=== PATIENT | male | born 2000 | race Caucasian/White ===

== ENCOUNTER 2018-10-26 22:53 | Emergency (ER) | payer BC ==
--- NOTE | 2018-10-26 22:57 | EDPHY ---
H & P Time Seen by Provider: 10/26/18 22:56 HPI/ROS: HPI: This is a 18-year-old male who presents with Chief Complaint: Right thumb laceration Location: Right thumb Quality: Laceration Duration: Prior to arrival Signs and Symptoms: + bleeding, no radiation, no numbness, no weakness, no tingling, no incontinence, no decreased range of motion, no swelling, no pain, no fever Timing: Acute Severity: Moderate Context: Patient is right-hand dominant, presents with accidentally cutting his right thumb at on the pad when he was closing his [place] [employer] knife while he was talking on the phone. Patient reports that this happened prior to arrival. He applied direct pressure and the bleeding stopped. Denies any nail involvement. He is from [place] and will be returning there after finals. Reports tetanus is up to date. Modifying Factors: Direct pressure Comment: ROS: A comprehensive 10 system review of systems is otherwise negative aside from elements mentioned in the history of present illness. MEDICAL/SURGICAL/SOCIAL HISTORY: Medical history: Attention deficit hyperactivity disorder Surgical history: Denies Social history: Student at [employer]. Originally from [place], [place]. CONSTITUTIONAL: Polite and cooperative young adult white male, awake and alert , no obvious distress HEENT: Atraumatic and normocephalic, PERRL, EOMI. Nares patent; no rhinorrhea; no nasal mucosal edema. Tympanic membranes clear. Oropharynx clear, no exudate and moist pink mucosa. Airway patent. No lymphadenopathy. No meningismus. Cardiovascular: Normal S1/S2, regular rate, regular rhythm, without murmur rub or gallop. PULMONARY/CHEST: Symmetrical and nontender. Clear to auscultation bilaterally. Good air movement. No accessory muscle usage. ABDOMEN: Soft, nondistended, nontender, no rebound, no guarding, no peritoneal signs, no masses or organomegaly. No CVAT. EXTREMITIES: 2/2 radial pulses, human resources benefits coordinator strength 5/5, right thumb shows 2.5 cm, C- shaped, superficial, simple laceration on the pad with no nail involvement. No active bleeding. DI P/PIP/MCP joints have good flexion extension with intact light touch sensation. no clubbing, no cyanosis or edema. NEUROLOGICAL: no focal neuro deficits. GCS 15. SKIN: Warm and dry, no erythema. no rash. Good capillary refill. Source: Patient Exam Limitations: No limitations Constitutional: Initial Vital Signs Temperature (C) 37.2 C 10/26/18 22:55 Heart Rate 93 10/26/18 22:55 Respiratory Rate 16 10/26/18 22:55 Blood Pressure 152/85 H 10/26/18 22:55 O2 Sat (%) 98 10/26/18 22:55 O2 Delivery Mode Room Air Allergies/Adverse Reactions: bee venom protein (honey bee) Allergy (Verified 10/26/18 22:58) Home Medications: Medication Instructions Recorded Adderall 30 mg Tablet 10/26/18 Medical Decision Making Procedures: Procedure: Laceration repair. Verbal consent was obtained from the patient. The 2.5 cm, C-shaped, simple, superficial laceration on the distal tip of the right thumb was anesthetized in the usual fashion using 3 cc of 1% lidocaine without epinephrine. The wound was irrigated, draped and explored to its base with a gloved finger. There were no deep structures involved. No tendon injury was identified. The wound was repaired with #5, 5-0 Prolene simple interrupted pattern. Good hemostasis was achieved and patient tolerated procedure well. The procedure was performed by myself. Procedure: Splint placement. A right aluminum cage finger splint was applied. After application of the splint I returned and re-examined the patient. The splint was adequately immobilizing the joint and distal to the splint the patient's circulation and sensation was intact. ED Course/Re-evaluation: Tetanus up-to-date Local anesthesia provided and irrigated copiously Laceration repaired with 5 nonabsorbable sutures Xeroform, clean sterile dressing, caged aluminum splint placed Verbal and written wound care instructions provided No signs of neurovascular compromise/tenting of skin/compartment syndrome/ extremities and joints examined above and below area of concern and are neurovascularly intact. This patient was seen under the supervision of my secondary supervising physician. I evaluated and cared for this patient with attending. Differential Diagnosis: Differential diagnosis includes but is not limited to laceration, nerve injury, nail injury, tendon injury, foreign body. Departure - Departure Disposition: Home, Routine, Self-Care Clinical Impression: Laceration of right thumb without complication Qualifiers: Encounter type: initial encounter Qualified Code(s): S61.011A - Laceration without foreign body of right thumb without damage to nail, initial encounter Condition: Good Instructions: Finger Laceration (ED), Care For Your Stitches (ED) Additional Instructions: Wear the splint for the next 2 days. Keep the dressing dry and in place for 48 hours. After 48 hours, you may remove the dressing; wash the site daily with mild soap and water; then pat dry. Apply topical antibiotic ointment and keep covered with sterile dressing until fully healed. Do not soak in a bathtub or go swimming until sutures are removed. Take Tylenol 650 mg every 4 hours and/or Ibuprofen 600 mg every 8 hours with food as needed for pain. Wound Care Follow-Up: Removal of sutures in [ 10-14 ] days. Suture removal is complimentary in uncomplicated cases. Infection or abnormal findings would require reevaluation by the MD. In that case, you may be billed. Return to the ER immediately if you experience redness, red streaks, have fevers /chills, flu like symptoms, limited range of motion, or any other symptoms that concern you. Referrals: Milton Sales MD [Medical Doctor] - Follow Up Only If Needed
[2018-10-26 22:58] VITALS: BP 152/85
== END 2018-10-26 23:33 | disposition home or self-care (01) ==
PROC: 0HQFXZZ Repair Right Hand Skin, External Approach (ICD-10-PCS; principal; 2018-10-26)
DX: S61.012A Laceration without foreign body of left thumb without damage to nail, initial encounter (principal); W26.0XXA Contact with knife, initial encounter
CPT/HCPCS: L3925